=== PATIENT | male | born 1995 | race Hispanic/Latino ===

== ENCOUNTER 2025-11-11 09:08 | Emergency (ER) | payer SELFPAY ==
[2025-11-11] MEDS ORDERED: Bacitracin 1 PK ONE (10:00)
[2025-11-11] MEDS ORDERED: Ibuprofen 200 MG TAB ONE (10:00)
== END 2025-11-11 10:10 | disposition home or self-care (01) ==
LOC: ERS 09:08
DX: S01.111A Laceration without foreign body of right eyelid and periocular area, initial encounter (principal); S80.212A Abrasion, left knee, initial encounter; S80.211A Abrasion, right knee, initial encounter; S40.811A Abrasion of right upper arm, initial encounter; F17.210 Nicotine dependence, cigarettes, uncomplicated; Z23 Encounter for immunization; Y04.8XXA Assault by other bodily force, initial encounter
CPT/HCPCS: 90471; 90715